=== PATIENT | female | born 1960 | race Caucasian/White ===

== ENCOUNTER 2018-10-20 09:50 | Outpatient (CLI) | payer OTHER ==
[2016-01-18 01:15] VITALS: O2SAT 97
== END 2018-10-20 09:51 | disposition home or self-care (01) | DRG 554 ==
LOC: CONVCARE 09:50
PROVIDERS: ATTEND Orthopaedic Surgery
DX: M17.12 Unilateral primary osteoarthritis, left knee (principal); M16.11 Unilateral primary osteoarthritis, right hip; M54.5 Low back pain
CPT/HCPCS: 73502; 73562